=== PATIENT | male | born 1940 | race Caucasian/White ===

== ENCOUNTER 2025-02-20 11:03 | Day surgery (SDC) | payer OTHER, SELFPAY ==
[2025-02-20 11:39] VITALS: BP 174/90; PULSE 69; RESP 16; TEMP 36.4; O2SAT 100
[2025-02-20] MEDS: Tropicam./Phenyleph. (1/2.5%) 5 ML BTL OS ×3 (11:42→11:54)
--- NOTE | 2025-02-20 12:20 | W.ANESPRE ---
General Info Date of Service Date Performed: 02/20/25 Height: 5 ft 10 in Weight: 76.5 kg Body Mass Index (BMI): 24.2 Surgical Procedure: Operation Date: 02/20/25 13:40 Proposed Procedure Side Surgeon p Cataract Extraction with IOL Implant w/Glaucoma Stent Left Deangelo Jaramillo MD Meds Allergies and Home Medications Allergies Allergy/AdvReac Type Severity Reaction Status Date / Time No Known Allergies Allergy Verified 02/20/25 11:32 Home Medication ?Medication ?Instructions ?Recorded apixaban 5 mg tablet 5 mg PO BID 02/16/25 dorzolamide 22.3 mg-timolol 6.8 1 drp ophthalmic (eye) BID 02/16/25 mg/mL eye drops hydrophilic 1 applic topical DAILY PRN 02/16/25 multivitamin (Daily Multi-Vitamin 1 tab PO DAILY 02/16/25 tablet) sildenafil 100 mg tablet (Viagra) 100 mg PO DAILY PRN 02/16/25 tamsulosin 0.4 mg capsule 0.4 mg PO DAILY 02/16/25 acetaminophen 500 mg tablet 500 mg PO ONCE 02/20/25 (Acetaminophen Extra Strength) Current Visit Medications: Current Medications Generic Name Dose Route Start Last Admin Trade Name Freq PRN Reason Stop Dose Admin Acetaminophen 1,000 mg 02/20/25 06:00 Acetaminophen 500 Mg Tab PO 03/22/25 05:59 Q4H PRN PRN Balanced Salt Solution 500 ml 02/20/25 06:00 Balanced Salt Soln.-Plus 500 Ml Bag OP 03/22/25 05:59 DIRECTED NATALYA Miscellaneous Medication 0 ml 02/20/25 06:00 Prednisolone 1%, Moxifloxacin 0.5%, Bromfenac 0.09% 5.6ml Btl OS 03/22/25 05:59 DIRECTED NATALYA Miscellaneous Medication 0 ml 02/20/25 06:00 02/20/25 11:54 Tropicam./Phenyleph. (1/2.5%) 5 Ml Btl OS 03/22/25 05:59 1 drp DIRECTED NATALYA Administration Tetracaine HCl 0 ml 02/20/25 06:00 Tetracaine 0.5% 4 Ml Btl OS 03/22/25 05:59 DIRECTED NATALYA PFSH Active Problems Active Problems: Problem Status Onset Code Posterior subcapsular age-related cataract of left eye Acute H25.042 Nuclear age-related cataract, left eye Acute H25.12 Chronic angle-closure glaucoma, left eye, indeterminate stage Acute H40.2224 Medical History Medical History History of malignant neoplasm of skin Conductive hearing loss Cheilitis Glaucoma History of tobacco use Erectile dysfunction Squamous cell carcinoma of skin Actinic keratitis Left inguinal hernia Afib Surgical History Surgical History History of ear surgery right History of hernia repair Tobacco Smoking/Tobacco Use Status: Former Tobacco Use Passive smoking exposure: No Alcohol Alcohol Intake: never Substance Use Substance use: Never Substance use type: does not use Vital Signs and Lab Results Vital Signs Most Recent Vital Signs in EMR: Most Recent Vital Signs Temp Pulse Resp BP Pulse Ox 36.4 C L 69 16 174/90 H 100 02/20/25 11:39 02/20/25 11:39 02/20/25 11:39 02/20/25 11:39 02/20/25 11:39 Anesthesia Assessment and Plan Anesthesia History Personal History: No History of Anesthesia Complications Family History: No Family History of Anesthesia Complications Exercise Tolerance Exercise Tolerance: Metabolic Equivalents>4 Pertinent Negatives Pertinent Negatives: No Symptoms of GERD, No Major Cardiovascular Symptoms or Complaints and No Major Pulmonary Symptoms or Complaints Cardiac & Pulmonary Exam Cardiac Exam: Normal S1/S2 Heart Sounds Pulmonary Exam: Clear Bilateral Breath Sounds Implantable Cardiac Device Does patient have a Pacemaker or an ICD?: No Airway Exam Known Difficult Airway: No Mallampati Class: 2 Mouth Opening: Normal (> 3cm) Thyromental Distance: Greater than 3 cm Neck Range of Motion: Full ROM Neck Circumference: Normal Teeth Condition: Removable Dentures/Plates Upper and Removable Dentures/Plates Lower ASA Classification ASA Score: ASA 3 Emergency Case?: No NPO Status NPO Status: NPO Clears >2 hours, Solids >8 hours Anesthesia Plan Resuscitation Status: Full Code Anesthesia Technique: MAC Anesthesia Airway Planned: Natural Airway Monitors Used: Standard Monitors
[2025-02-20 12:23] VITALS: BMI 24.2
[2025-02-20] MEDS: Tetracaine 0.5% 4 ML BTL OS (13:09)
[2025-02-20] MEDS: Povidone-Iodine Ophth 30 ML BTL (13:09)
[2025-02-20] MEDS: Duovisc Viscoelastic System EACH 1 EACH (13:18)
[2025-02-20] MEDS: Lidocaine 1% Pres-Free 5 ML VIAL (13:18)
[2025-02-20] MEDS: Phenylephrine/Lidocaine (15/10) MG/ML 1 ML VIAL (13:19)
[2025-02-20] MEDS: Trypan Blue 0.06% 0.5 ML SYR (13:20)
[2025-02-20] MEDS: Balanced Salt Soln.-PLUS 500 ML BAG OP (13:20)
[2025-02-20] MEDS: Moxifloxacin-PF 1 MG/ML VIAL (13:34)
[2025-02-20] MEDS: Prednisolone 1%, Moxifloxacin 0.5%, Bromfenac 0.09% 5.6ML BTL OS (13:35)
[2025-02-20 13:50] VITALS: BP 155/88; PULSE 67; RESP 16; TEMP 36.5; O2SAT 98
--- NOTE | 2025-02-20 13:51 | W.PM.DSUDISC ---
Date of service: 02/20/25 Discharge Plan Disposition Patient Disposition: Home Discharge Details Attending Provider: Deangelo Jaramillo Primary Care Provider: [facility] Home Meds and New Rx's Prescriptions: No Action apixaban 5 mg tablet 5 mg PO BID dorzolamide-timolol 22.3-6.8 mg/mL drops 1 drp ophthalmic (eye) BID hydrophilic Ointment 1 applic topical DAILY PRN tamsulosin 0.4 mg capsule 0.4 mg PO DAILY sildenafil [Viagra] 100 mg tablet 100 mg PO DAILY PRN Rx Instructions: administer 30 minutes to 4 hours before activity multivitamin [Daily Multi-Vitamin] Tablet 1 tab PO DAILY acetaminophen [Acetaminophen Extra Strength] 500 mg tablet 500 mg PO ONCE Discharge Instructions Stand Alone Forms: [facility] Post-Op Cataract, Estrellita Diaz ([facility]) Discharge Orders Discharge Orders: Discharge Order (Routine); Ordered 02/20/25 Ordered By: Deangelo Jaramillo DS: Diagnosis Discharge Diagnosis (1) Posterior subcapsular age-related cataract of left eye: Status: Resolved (2) Nuclear age-related cataract, left eye: Status: Resolved (3) Chronic angle-closure glaucoma, left eye, indeterminate stage: Status: Chronic
--- NOTE | 2025-02-20 13:54 | W.PM.OP ---
Operative Note Operative Note PRE-OP DIAGNOSIS: Dense nuclear/posterior subcapsular cataract, left eye Chronic angle-closure glaucoma, left eye, indeterminate stage POST-OP DIAGNOSIS: same PROCEDURE: Cataract extraction using phacoemulsification with intraocular lens implant, left eye Goniotomy, left eye SURGEON: Deangelo Jaramillo ANESTHESIA TYPE: Local By Surgeon and MAC Refer to Anesthesia Record PATHOLOGY: none sent COMPLICATIONS: None Patient was transported to: same day Patient's condition: stable Implants: Fritz Clareon [id number] Indications: Progressive decreased vision due to cataract, left eye Chronic angle-closure glaucoma, left eye, indeterminate stage Procedure Description: CATARACT SURGERY OPERATIVE REPORT PREOPERATIVE DIAGNOSIS: Dense nuclear/posterior subcapsular cataract, left eye Chronic angle-closure glaucoma, left eye, indeterminate stage POSTOPERATIVE DIAGNOSIS: Same OPERATION: 1. Cataract extraction using phacoemulsification with posterior chamber intraocular lens implant, left eye. 2. Goniotomy, left eye IOL: IOL Cutting Machine Fixer/Model: Fritz Clareon [id number] IOL Power: + 25.0 diopters IOL Serial Number: [id number] Optic Diameter: 6.0mm Haptic/Overall Diameter: 13.0mm PHACO INFO: Fritz Fiosurion Vision System with OZil and Active Fluidics Cumulative Dispersed Energy (CDE): 14.84 seconds SURGEON: Deangelo Jaramillo MD, MARIELLE ANESTHESIA: Monitored Anesthesia Care (MAC), with local sub-tenon's anesthetic infiltration COMPLICATIONS: None SPECIMENS: None INDICATIONS FOR PROCEDURE: The patient is an 84-year-old male with history of diminished visual acuity in his left eye secondary to the development of dense nuclear/posterior subcapsular cataract. He also has a history of chronic angle-closure glaucoma OU, status post laser peripheral iridotomy in 2012, and treated with 1 topical medication. The option of cataract surgery was offered to the patient and he wished to proceed. In addition, once the cataract is out and the angles are opened, gonioscopy will be performed and followed by goniotomy if trabecular meshwork is visible. See office notes for detailed information. PROCEDURE: The correct surgical eye was identified and marked as the left eye and the pupil was dilated in the preoperative area using mydriatics and cycloplegics. The dilated pupil size was 4.5 mm. The patient was brought to the operating room where cardiopulmonary monitoring was instituted and surgical time-out was performed, confirming the correct operative eye and IOL power. Topical anesthesia was administered and ophthalmic povidone-iodine 5% was instilled into the conjunctival fornices. The tristian-ocular area was prepped with Betadine 10% solution and draped in the usual sterile fashion for intraocular surgery, including an aperture drape. A Tegaderm transparent film dressing was cut in half and used to cover the lashes and lid margins. Care was taken to sequester the lashes and lid margins under the Tegaderm dressing. A lid speculum was placed between the lids of the operative eye and the Fritz LuxOR Revalia operating microscope was maneuvered into position. Summer scissors were then used to make a conjunctival buttonhole approximately 6mm posterior to the limbus in the inferonasal quadrant. Blunt dissection was carried out to expose bare sclera, and a blunt-tipped sub-tenon?s anesthesia cannula was introduced and passed posteriorly along the globe where non-preserved plain lidocaine was injected into posterior sub-Tenon?s space. A sideport knife was used to make a paracentesis port superiorly/superiortemporally. VisionBlue was injected into the anterior chamber and allowed to sit for 30 seconds. Intraocular phenylephrine/lidocaine was injected into the anterior chamber. The anterior chamber was then filled with viscoelastic. Discal dilation was performed to achieve a pupil size of 5.0 mm. A keratome knife was used to construct a clear corneal tunnel extending 2.0mm into clear cornea. . A flap was raised on the anterior capsule and capsulorhexis forceps were used to complete a continuous curvilinear capsulorhexis of 5.0 mm. Balanced salt solution was then used to perform cortical cleaving hydrodissection and nuclear hydrodelineation until the lens could be freely rotated within the capsular bag. The lens nucleus was then disassembled and removed within the capsular bag and iris plane using phacoemulsification. The pupil constricted to 3 mm during phacoemulsification, making visualization challenging. Residual cortical material was removed using the 45-degree angled silicone I/A tip with 0.3mm port. The posterior capsule was carefully polished to remove as much residual lens epithelial cells as safely possible. The capsular bag was then inflated and the anterior chamber deepened with viscoelastic. The lens implant described above was inserted into the capsular bag using the Fritz Autonome pre-loaded injector. A Kuglen hook was used to dial the IOL into position. The anterior chamber was then slightly over-filled with cohesive viscoelastic. The microsope and the patient's head were tilted into the ideal position for viewing of the anterior chamber angle. Viscoelastic was placed on the cornea followed by a surgical gonionlens, and the anterior chamber angle landmarks were identified. The trabecular meshwork was well-visualized, densely pigmented. Needle holders were then used to bend the very tip of a 25-gauge needle to a 75 to 80 degree angle, which was then introduced into the anterior chamber. The tip of the needle was used to enter the trabecular meshwork and a goniotomy was performed for at least 90 degrees in a clockwise fashion from the 7:30 to 10:30 o'clock position. A mild amount of hemorrhage was noted. The microscope and the patients head were returned to the normal coaxial position. Viscoelatic was then removed from the anterior chamber using the I/A handpiece. Blanching of the deep conjunctival vessels was noted nasally during removal of viscoelastic. The lens implant was noted to center nicely within the capsular bag. The incisions were stromally hydrated, and the anterior chamber was reformed using BSS. Then 0.5cc of moxifloxacin 1.0mg/ml were injected into the capsular bag and anterior chamber. The incisions were checked with a Weck spear and found to be secure. Several drops of ophthalmic povidone-iodine 5% were then applied to the eye followed by two drops of Imprimis combination prednisolone/moxifloxacin/nepafenac solution. The drapes were removed and a clear plastic protective eye shield was placed over the eye. The patient was then returned to Same Day Surgery in stable condition.. Date of Procedure: 02/20/25
--- NOTE | 2025-02-20 14:19 | W.ANESPOSTOP ---
Postoperative Evaluation Date, Time and Location Date Performed: 02/20/25 Time Performed: 13:50 Patient Location: Day Surgery Unit Vital Signs Most Recent Imported Vital Signs: Most Recent Vital Signs Temp Pulse Resp BP Pulse Ox 36.5 C 67 16 155/88 H 98 02/20/25 13:50 02/20/25 13:50 02/20/25 13:50 02/20/25 13:50 02/20/25 13:50 Pain Score Most Recent Pain Score: Most Recent Pain Score Pain Level 0 02/20/25 13:50 Assessment Mental Status: Awake (Alert & Oriented to Patient Baseline) Airway and Respiratory Function: Patent airway with normal (patient baseline) respiratory exam Cardiovascular Function: Hemodynamically Stable Hydration Status: Adequately Hydrated Nausea & Vomiting: No Nausea or Vomiting Pain: Pt. Denies Any Pain Peripheral Nerve Block: Patient did not receive a nerve block
== END 2025-02-20 14:27 | disposition home or self-care (01) ==
LOC: SUR 11:06
PROVIDERS: Visit Provider Ophthalmology
PROC: (CPT 65820; principal; 2025-02-20 13:30)
DX: H25.042 Posterior subcapsular polar age-related cataract, left eye (principal); H25.12 Age-related nuclear cataract, left eye; H40.222 Chronic angle-closure glaucoma, left eye
CPT/HCPCS: 65820; 66984; 00123; V2632; J2003

== ENCOUNTER 2025-02-27 12:00 | Day surgery (SDC) | payer OTHER, SELFPAY ==
[2025-02-27 12:14] VITALS: BP 143/95; PULSE 75; RESP 18; TEMP 36.4; O2SAT 98
[2025-02-27] MEDS: Tropicam./Phenyleph. (1/2.5%) 5 ML BTL OD ×3 (12:21→12:31)
--- NOTE | 2025-02-27 12:22 | ANES.PREOP_ITS ---
General Info Date of Service Date Performed: 02/27/25 Height: 5 ft 10 in Weight: 75.4 kg Body Mass Index (BMI): 23.8 Surgical Procedure: Operation Date: 02/27/25 15:40 Proposed Procedure Side Surgeon p Cataract Extraction with IOL Implant w/Glaucoma Stent Right Deangelo Jaramillo MD Meds Allergies and Home Medications Allergies Allergy/AdvReac Type Severity Reaction Status Date / Time No Known Allergies Allergy Verified 02/27/25 12:16 Home Medication ?Medication ?Instructions ?Recorded apixaban 5 mg tablet 5 mg PO BID 02/16/25 dorzolamide 22.3 mg-timolol 6.8 1 drp ophthalmic (eye) BID 02/16/25 mg/mL eye drops hydrophilic 1 applic topical DAILY PRN 0 02/16/25 sildenafil 100 mg tablet (Viagra) 100 mg PO DAILY PRN 02/16/25 tamsulosin 0.4 mg capsule 0.4 mg PO DAILY 02/16/25 acetaminophen 500 mg tablet 500 mg PO ONCE 02/20/25 (Acetaminophen Extra Strength) Current Visit Medications: Current Medications Generic Name Dose Route Start Last Admin Trade Name Freq PRN Reason Stop Dose Admin Acetaminophen 1,000 mg 02/27/25 06:00 Acetaminophen 500 Mg Tab PO 03/29/25 05:59 Q4H PRN PRN Balanced Salt Solution 500 ml 02/27/25 06:00 Balanced Salt Soln.-Plus 500 Ml Bag OP 03/29/25 05:59 DIRECTED NATALYA Miscellaneous Medication 0 ml 02/27/25 06:00 Prednisolone 1%, Moxifloxacin 0.5%, Bromfenac 0.09% 5.6ml Btl OD 03/29/25 05:59 DIRECTED NATALYA Miscellaneous Medication 0 ml 02/27/25 06:00 Tropicam./Phenyleph. (1/2.5%) 5 Ml Btl OD 03/29/25 05:59 DIRECTED NATALYA Tetracaine HCl 0 ml 02/27/25 06:00 Tetracaine 0.5% 4 Ml Btl OD 03/29/25 05:59 DIRECTED NATALYA PFSH Active Problems Active Problems: Problem Status Onset Code Nuclear age-related cataract, right eye Acute H25.11 Chronic angle-closure glaucoma, right eye, indeterminate stage Acute H40.2214 Posterior subcapsular age-related cataract of left eye Resolved H25.042 Nuclear age-related cataract, left eye Resolved H25.12 Chronic angle-closure glaucoma, left eye, indeterminate stage Chronic H40.2224 Medical History Medical History History of malignant neoplasm of skin Conductive hearing loss Cheilitis Glaucoma History of tobacco use Erectile dysfunction Squamous cell carcinoma of skin Actinic keratitis Left inguinal hernia Afib Surgical History Surgical History History of ear surgery right History of hernia repair Tobacco Smoking/Tobacco Use Status: Former Tobacco Use Passive smoking exposure: No Alcohol Alcohol Intake: never Substance Use Substance use: Never Substance use type: does not use Vital Signs and Lab Results Vital Signs Most Recent Vital Signs in EMR: Most Recent Vital Signs Temp Pulse Resp BP Pulse Ox 36.4 C L 75 18 143/95 H 98 02/27/25 12:14 02/27/25 12:14 02/27/25 12:14 02/27/25 12:14 02/27/25 12:14 Anesthesia Assessment and Plan Anesthesia History Personal History: No History of Anesthesia Complications Family History: No Family History of Anesthesia Complications Exercise Tolerance Exercise Tolerance: Metabolic Equivalents>4 Pertinent Negatives Pertinent Negatives: No Symptoms of GERD Cardiac & Pulmonary Exam Cardiac Exam: Normal S1/S2 Heart Sounds Pulmonary Exam: Clear Bilateral Breath Sounds Implantable Cardiac Device Does patient have a Pacemaker or an ICD?: No Airway Exam Known Difficult Airway: No Mallampati Class: 2 Mouth Opening: Normal (> 3cm) Thyromental Distance: Greater than 3 cm Neck Range of Motion: Full ROM Neck Circumference: Normal Teeth Condition: Removable Dentures/Plates Upper and Removable Dentures/Plates Lower ASA Classification ASA Score: ASA 3 Emergency Case?: No NPO Status NPO Status: NPO Clears >2 hours, Solids >8 hours Anesthesia Plan Resuscitation Status: Full Code Anesthesia Technique: MAC Anesthesia Airway Planned: Natural Airway Monitors Used: Standard Monitors
[2025-02-27 13:04] VITALS: BMI 23.8
[2025-02-27] MEDS: Duovisc Viscoelastic System EACH 1 EACH (13:27)
[2025-02-27] MEDS: Lidocaine 1% Pres-Free 5 ML VIAL (13:28)
[2025-02-27] MEDS: Moxifloxacin-PF 1 MG/ML VIAL (13:28)
[2025-02-27] MEDS: Povidone-Iodine Ophth 30 ML BTL (13:29)
[2025-02-27] MEDS: Phenylephrine/Lidocaine (15/10) MG/ML 1 ML VIAL (13:29)
[2025-02-27] MEDS: Prednisolone 1%, Moxifloxacin 0.5%, Bromfenac 0.09% 5.6ML BTL OD (13:30)
[2025-02-27] MEDS: Balanced Salt Soln.-PLUS 500 ML BAG OP (13:30)
[2025-02-27] MEDS: Tetracaine 0.5% 4 ML BTL OD (13:31)
[2025-02-27] MEDS: Trypan Blue 0.06% 0.5 ML SYR (13:46)
[2025-02-27 13:58] VITALS: BP 149/90; PULSE 71; RESP 16; TEMP 36.6; O2SAT 98
--- NOTE | 2025-02-27 14:08 | PDOC.DSDIS_ITS ---
Date of service: 02/27/25 Discharge Plan Disposition Patient Disposition: Home Discharge Details Attending Provider: Deangelo Jaramillo Primary Care Provider: [facility] Home Meds and New Rx's Prescriptions: No Action apixaban 5 mg tablet 5 mg PO BID dorzolamide-timolol 22.3-6.8 mg/mL drops 1 drp ophthalmic (eye) BID hydrophilic Ointment 1 applic topical DAILY PRN Patient Comments: cerave lotion tamsulosin 0.4 mg capsule 0.4 mg PO DAILY sildenafil [Viagra] 100 mg tablet 100 mg PO DAILY PRN Rx Instructions: administer 30 minutes to 4 hours before activity acetaminophen [Acetaminophen Extra Strength] 500 mg tablet 500 mg PO ONCE Discharge Instructions Stand Alone Forms: DSU Post-Op CataractEstrellita ([facility]U) Discharge Orders Discharge Orders: Discharge Order (Routine); Ordered 02/27/25 Ordered By: Deangelo Jaramillo DS: Diagnosis Discharge Diagnosis (1) Nuclear age-related cataract, right eye: Status: Resolved (2) Chronic angle-closure glaucoma, right eye, indeterminate stage: Status: Chronic
--- NOTE | 2025-02-27 14:09 | ROE_ITS ---
Operative Note Operative Note PRE-OP DIAGNOSIS: Dense nuclear cataract, right eye Chronic angle-closure glaucoma, right eye, indeterminate stage POST-OP DIAGNOSIS: same PROCEDURE: Cataract extraction using phacoemulsification with intraocular lens implant, right eye Goniotomy, right eye SURGEON: Deangelo Jaramillo ANESTHESIA TYPE: Local By Surgeon and MAC Refer to Anesthesia Record ESTIMATED BLOOD LOSS: 0 PATHOLOGY: none sent COMPLICATIONS: None Patient was transported to: same day Patient's condition: stable Implants: Fritz Clareon [id number] Indications: Progressive decreased vision due to cataract, right eye Chronic angle-closure glaucoma, right eye Procedure Description: CATARACT SURGERY OPERATIVE REPORT PREOPERATIVE DIAGNOSIS: Dense nuclear cataract, right eye Chronic angle-closure glaucoma, right eye, indeterminate stage POSTOPERATIVE DIAGNOSIS: Same OPERATION: Cataract extraction using phacoemulsification with posterior chamber intraocular lens implant, right eye. Goniotomy, right eye IOL: IOL Video Surveillance Technician/Model: Fritz Clareon [id number] IOL Power: + 25.5 diopters IOL Serial Number: [id number] Optic Diameter: 6.0mm Haptic/Overall Diameter: 13.0mm PHACO INFO: Fritz Predictryurion Vision System with OZil and Active Fluidics Cumulative Dispersed Energy (CDE): 17.31 seconds SURGEON: Deangelo Jaramillo MD, MARIELLE ANESTHESIA: Monitored Anesthesia Care (MAC), with local sub-tenon's anesthetic infiltration COMPLICATIONS: None SPECIMENS: None INDICATIONS FOR PROCEDURE: The patient is a 84-year-old male with history of diminished visual acuity in both eyes secondary to the development of dense bilateral nuclear cataract. He also has a history of indeterminate stage chronic angle-closure glaucoma in both eyes which he manages with topical Cosopt. He has previous laser iridotomies. He underwent cataract surgery in the left eye with goniotomy. He is doing well postoperatively now presents for cataract surgery with goniotomy in the right eye. See office notes for detailed information. PROCEDURE: The correct surgical eye was identified and marked as the right eye and the pupil was dilated in the preoperative area using mydriatics and cycloplegics. The dilated pupil size was 5.0 mm. The patient elected to proceed without oral sedation. The patient was brought to the operating room where cardiopulmonary monitoring was instituted and surgical time-out was performed, confirming the correct operative eye and IOL power. Topical anesthesia was administered and ophthalmic povidone-iodine 5% was instilled into the conjunctival fornices. The tristian-ocular area was prepped with Betadine 10% solution and draped in the usual sterile fashion for intraocular surgery, including an aperture drape. A Tegaderm transparent film dressing was cut in half and used to cover the lashes and lid margins. Care was taken to sequester the lashes and lid margins under the Tegaderm dressing. A lid speculum was placed between the lids of the operative eye and the Fritz LuxOR Revalia operating microscope was maneuvered into position. Summer scissors were then used to make a conjunctival buttonhole approximately 6mm posterior to the limbus in the inferonasal quadrant. Blunt dissection was carried out to expose bare sclera, and a blunt-tipped sub-tenon?s anesthesia cannula was introduced and passed posteriorly along the globe where non- preserved plain lidocaine was injected into posterior sub-Tenon?s space. A sideport knife was used to make a paracentesis port. VisionBlue was injected into the anterior chamber and allowed to sit for 30 seconds. Intraocular phenylephrine/lidocaine was injected into the anterior chamber. The anterior chamber was then filled with viscoelastic. A keratome knife was used to construct a two--plane clear corneal tunnel extending 2.0mm into clear cornea. A flap was raised on the anterior capsule and capsulorhexis forceps were used to complete a continuous curvilinear capsulorhexis of 5.0 mm. Balanced salt solution was then used to perform cortical cleaving hydrodissection and nuclear hydrodelineation until the lens could be freely rotated within the capsular bag. The lens nucleus was then disassembled and removed within the capsular bag and iris plane using phacoemulsification. Residual cortical material was removed using the I/A handpiece. The posterior capsule was carefully polished to remove as much residual lens epithelial cells as safely possible. The capsular bag was then inflated and the anterior chamber deepened with cohesive viscoelastic. The lens implant described above was inserted into the capsular bag using the Fritz Autonome Injector. A Kuglen hook was used to dial the IOL into position. The anterior chamber was then slightly overfilled with cohesive viscoelastic, and viscoelastic was placed on the corneal surface. The patient's head and microscope were angled to the appropriate position for anterior chamber angle surgery. A self-retaining gonial lens was placed on the cornea and the trabecular meshwork was identified. The tip of a 27-gauge needle was bent to a pproximately 80 degrees and introduced into the anterior chamber, where the tip was used to enter the trabecular meshwork/slams canal and a goniotomy was performed from the superior nasal angle to the inferior nasal angle, approximately 90 degrees. A mild amount of hemorrhage occurred. The patient's head and microscope were then returned to the normal coaxial position. Residual viscoelastic was then removed first from posterior to the IOL, then from the anterior chamber using the I/A handpiece. The lens implant was noted to center nicely within the capsular bag. The incisions were stromally hydrated, and the anterior chamber was reformed using BSS. Then 0.5cc of moxifloxacin 1.0mg/ml were injected into the capsular bag and anterior chamber. The incisions were checked with a Weck spear and found to be secure. Several drops of ophthalmic povidone-iodine 5% were then applied to the eye followed by two drops of combination steroid/NSAID/antibiotic solution. The drapes were removed and a clear plastic protective eye shield was placed over the eye. The patient was then returned to Same Day Surgery in stable condition. Date of Procedure: 02/27/25
--- NOTE | 2025-02-27 16:23 | W.ANESPOSTOP ---
Postoperative Evaluation Date, Time and Location Date Performed: 02/27/25 Time Performed: 14:00 Patient Location: Day Surgery Unit Vital Signs Most Recent Imported Vital Signs: Most Recent Vital Signs Temp Pulse Resp BP Pulse Ox 36.6 C 71 16 149/90 H 98 02/27/25 13:58 02/27/25 13:58 02/27/25 13:58 02/27/25 13:58 02/27/25 13:58 Pain Score Most Recent Pain Score: Most Recent Pain Score Pain Level 0 02/27/25 13:58 Assessment Mental Status: Awake (Alert & Oriented to Patient Baseline) Airway and Respiratory Function: Patent airway with normal (patient baseline) respiratory exam Cardiovascular Function: Hemodynamically Stable Hydration Status: Adequately Hydrated Nausea & Vomiting: No Nausea or Vomiting Pain: Pt. Denies Any Pain Peripheral Nerve Block: Patient did not receive a nerve block
== END 2025-02-27 14:21 | disposition home or self-care (01) ==
LOC: SUR 12:00
PROVIDERS: Visit Provider Ophthalmology
PROC: (CPT 65820; principal; 2025-02-27 15:30)
DX: H25.11 Age-related nuclear cataract, right eye (principal); H40.2214 Chronic angle-closure glaucoma, right eye, indeterminate stage; Z98.42 Cataract extraction status, left eye
CPT/HCPCS: 65820; 66984; 00123; V2632; J2003